=== PATIENT | female | born 1965 | race African-American/Black ===

== ENCOUNTER 2017-06-04 21:23 | Emergency (ER) | payer OTHER ==
[2017-06-04] MEDS ORDERED: Naproxen 500 MG TAB ONE (21:54)
[2017-06-04] MEDS ORDERED: Metoclopramide HCl 10 MG TAB ONE (21:54)
[2017-06-04] MEDS ORDERED: Ondansetron ODT 4 MG TAB ONE (21:54)
[2017-06-04] MEDS ORDERED: Meclizine HCl 25 MG TAB ONE (21:59)
[2017-06-04 22:04] LABS: Bilirubin Negative (Negative); Blood, Urine Negative (Negative); Glucose, Urine (Dipstick) Negative (Negative); Leukocyte Trace (Negative); Nitrite Negative (Negative); Protein, Urine (Dipstick) 30 mg/dL (Neg-Trace); Urobilinogen 0.2 mg/dL (0.2-1.0)
[2017-06-04 22:06] LABS: Clarity Hazy (Clear)
[2017-06-04 22:07] LABS: Bacteria/HPF 3+ HPF (None Seen); Transitional Epithelial 0-3 HPF (0-3); WBC/HPF 21-50 HPF (0-3); Yeast-All Forms Rare HPF (None Seen)
[2017-06-04] MEDS ORDERED: Fluconazole 100 MG TAB ONE (22:18)
[2017-06-04] MEDS ORDERED: Sulfameth/Trimethoprim DS 800-160mg TAB ONE (22:18)
== END 2017-06-04 22:25 | disposition home or self-care (01) ==
LOC: MADERS 21:23
DX: N39.0 Urinary tract infection, site not specified (principal); I10 Essential (primary) hypertension
CPT/HCPCS: 81001; 87086; 99284; Q0162